=== PATIENT | male | born 1965 | race Two or more races ===

== ENCOUNTER 2022-02-04 19:15 | Emergency (ER) | payer SELFPAY ==
[~2022-02-04] VITALS: Ht 175.3 cm; Wt 77.1 kg
[2022-02-04 19:33] VITALS: BP 136/80
--- NOTE | 2022-02-04 19:48 | NUR ---
PT LEFT WITHOUT BEING SEEN
== END 2022-02-04 19:48 | disposition left against medical advice (07) ==
LOC: ER 19:16
DX: Z53.21 Procedure and treatment not carried out due to patient leaving prior to being seen by health care provider (principal); Z76.0 Encounter for issue of repeat prescription